=== PATIENT | female | born 1980 | race Hispanic/Latino ===

== ENCOUNTER 2018-05-13 04:50 | Emergency (ER) | payer OTHER ==
[2018-05-13 05:18] VITALS: BMI 33.0
--- NOTE | 2018-05-13 06:36 | OBHP ---
Datetime: 05/13/2018 05:35 IP Adm Impression: Term, intrauterine IP Admit Plan: Discharge home Admit Comment, IP Provider: IUP at 4o+w (PMD Dr Avitia - [facility]) Hx IVF c/o decreased FM this AM. No SROM. No CTX., No VB...She felt +FM while in L_D. She was admited to [facility] last week for IOL trial and discharged home/'not opening up'. She is scheduled for appt today at [facility] doctor's office and IOL for this . care: undocumented - Dr Avitia (next appt 9am today) POBGYNHx: - preg via IVF with [facility] [place]; no STD PMH: denies PSH: denies NKA PSoH: denies smoking ETOH drugs A: IUP at 40w +FM ; Hx IVF PLAN sono for BPP; pt states that she will be seeing her OBGYN at 9am in [facility] today; will disc harge home accompanied by her and mother. Labor instructions. Pelvic Type - PN: Adequate Abdomen - PN: Normal General - PN: Normal Membranes, Provider: Intact Contraction Comments Provider: 120 Pool Provider: Negative IP Chief Complaint: Decreased movement NICHD Variability Prov Fetus A: Moderate 6-25bpm NICHD Accel Fetus A IP Provider: [id number] FHR Category Provider Fetus A: Category I NICHD Decel Fetus A IP Provider: None Dilatation, Provider: 0 Effacement, Provider: 0
--- NOTE | 2018-05-13 06:36 | OBDCSUM ---
Datetime: 05/13/2018 05:54 Discharged to, Provider: Home Follow up at, Provider: PRIMARY MD , DR NAIR Disch Instr Activity: Normal activity Disch Instr Diet: Regular Discharge Instructions, Provider: Routine instructions given Discharge Time: 05/13/2018 05:55 Follow up in weeks, Provider: 0930AM TODAY 05/13/18 SCHEDULED Disch Referrals: None Discharge Diagnosis Prov Other: decreased FM - +FM in [place]
[2018-05-13 11:40] VITALS: BP 119/72; PULSE 67; O2SAT 100
== END 2018-05-13 06:00 | disposition home or self-care (01) ==
LOC: H.EROB2 04:50
DX: O36.8131 Decreased fetal movements, third trimester, fetus 1 (principal); O48.0 Post-term pregnancy; Z3A.40 40 weeks gestation of pregnancy